=== PATIENT | female | born 1985 | race Two or more races ===

== ENCOUNTER 2024-08-12 04:35 | Inpatient (IN) | payer OTHER ==
[~2024-08-12] VITALS: Ht 170.2 cm; Wt 144.0 kg
[2024-08-12] VITALS (13 sets, daily range): BP systolic 138–165; BP diastolic 78–109; PULSE 97–124; RESP 12–22; TEMP 97.3–98.9; O2SAT 92–100
--- NOTE | 2024-08-12 05:14 | ECG ---
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
[2024-08-12 05:17] LABS: Basophils # (auto) 0.2 10 ^3/uL (0-0.2); Hemoglobin 11.7 g/dL (12.2-16.2); Lymphocytes # (auto) 2.5 10 ^3/uL (0.4-5.4); Neutrophils # (auto) 9.2 10 ^3/uL (1.6-8.6)
[2024-08-12 05:22] LABS: Basophils % (auto) 1.1 % (0.0-2.0); Eosinophils # (auto) 1.5 10 ^3/uL (0-0.8); Eosinophils % (auto) 10.8 % (0.0-7.0); Hematocrit 36.6 % (36.0-46.0); Lymphocytes % (auto) 17.6 % (10.0-50.0); Mean Corpuscular Hemoglobin 24.7 pg (28.0-32.0); Mean Corpuscular Volume 77.2 fL (80.0-100.0); Monocytes # (auto) 0.9 10 ^3/uL (0-1.3); Monocytes % (auto) 6.6 % (0.0-12.0); Neutrophils % (auto) 63.9 % (37.0-80.0); Platelet Count (auto) 484 10^3/uL (140-450); Red Blood Cells 4.74 10^6/uL (4.0-5.20); White Blood Cell 14.3 10^3/uL (4.4-10.8)
[2024-08-12 05:29] LABS: Alanine Aminotransferase 19 U/L (7-40); Albumin 4.8 g/dL (3.2-4.8); Alkaline Phosphatase 61 U/L (46-116); Anion Gap 9 (5-15); Aspartate Aminotransferase 19 U/L (13-40); BUN/Creatinine Ratio 14.1 (10.0-20.0); Bilirubin, Total 0.7 mg/dL (0.2-1.0); Blood Urea Nitrogen 10 mg/dL (9-23); Calcium 9.7 mg/dL (8.7-10.4); Carbon Dioxide 27 mmol/L (20-31); Chloride 105 mmol/L (98-107); Potassium 3.9 mmol/L (3.5-5.1); Sodium 141 mmol/L (136-145)
[2024-08-12 05:39] LABS: Glucose 126 mg/dL (74-106); Total Protein 8.2 g/dL (5.7-8.2)
[2024-08-12 05:43] LABS: COVID19 ANTIGEN SOFIA FIA NEGATIVE (NEGATIVE); Rapid Influenza A Negative (Negative); Rapid Influenza B Negative (Negative)
[2024-08-12] MEDS ORDERED: DexAMETHasone INJECTION 10 MG in D5W 5% 50 ML IV ONE (05:45)
[2024-08-12] MEDS: IPRATROPIUM BROM 0.5 MG/2.5ML INH SOL NEB ONE ×2 (06:05→08:42)
[2024-08-12] MEDS: ALBUTEROL SULF 2.5 MG/0.5ML(0.5%) NEB SOLN NEB ONE ×2 (06:05→08:42)
[2024-08-12] MEDS: DexAMETHasone SOD PHOS 10MG/1ML VIAL INJ IV ONE (06:11)
--- NOTE | 2024-08-12 06:36 | DVH ---
EXAM: XR Chest, 1 View CLINICAL INDICATION: Shortness of breath TECHNIQUE: Frontal view of the chest. COMPARISON: None FINDINGS: LUNGS AND PLEURAL SPACES: Unremarkable. No consolidation. No pneumothorax. HEART: Unremarkable. No cardiomegaly. MEDIASTINUM: Unremarkable. Normal mediastinal contour. BONES/JOINTS: Unremarkable. No acute fracture. OTHER FINDINGS: . IMPRESSION: No acute cardiopulmonary process.
--- NOTE | 2024-08-12 07:14 | ED.PDOC ---
SOB-HPI HPI Comments 38 year old female DYLON presents to the ED with chief complaint of SOB. Patient reports that she has been experiencing SOB that is worse with exertion for the past 2 days. Patient relays that she has history of asthma and she used her inhaler with no relief noted. Patient states upon being transported by the ambulance and being given a breathing treatment, she felt much better upon arrival to the ED. Patient denies any chest pain, cough, fever, chills, headache, dizziness, or hemoptysis. 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 Hx Family History Family History: Reviewed,noncontributory to illness Social History Smoker: Non-Smoker Alcohol: Denies ETOH Use Drugs: Denies Drug Use Lives In: Home Constitutional: denies: chills, diaphoresis, fatigue, fever, malaise, sweats, weakness, others EENTM: denies: blurred vision, double vision, ear bleeding, ear discharge, ear drainage, ear pain, ear ringing, eye pain, eye redness, hearing loss, mouth pain, mouth swelling, nasal discharge, nose bleeding, nose congestion, nose pain, photophobia, tearing, throat pain, throat swelling, voice changes, others Respiratory: reports: shortness of breath, SOB with excertion; denies: cough, hemoptysis, orthopnea, SOB at rest, stridor, wheezing, others Cardiovascular: denies: chest pain, dizzy spells, diaphoresis, Dyspnea on exertion, edema, irregular heart beat, left arm pain, lightheadedness, palpitations, PND, syncope, others Gastrointestinal: denies: abdomen distended, abdominal pain, blood streaked bowels, constipated, diarrhea, dysphagia, difficulty swallowing, hematemesis, melena, nausea, poor appetite, poor fluid intake, rectal bleeding, rectal pain, vomiting, others Genitourinary: denies: abnormal vagina bleeding, burning, dyspareunia, dysuria, flank pain, frequency, hematuria, incontinence, pain, , vagina discharge, urgency, others Neurological: denies: dizziness, fainting, headache, left sided numbness, left sided weakness, numbness, paresthesia, pre-existing deficit, right sided numbness, right sided weakness, seizure, speech problems, tingling, tremors, weakness, others Musculoskeletal: denies: back pain, gout, joint pain, joint swelling, muscle pain, muscle stiffness, neck pain, others Integumetry: denies: bruises, change in color, change in hair/nails, dryness, laceration, lesions, lumps, rash, wounds, others Allergic/Immunocompromised: denies: Difficulty Healing, Frequent Infections, Hives, Itching, others Hematologic/Lymphatic: denies: anemia, blood clots, easy bleeding, easy bruising, swollen glands, others Endocrine: denies: excessive hunger, excessive sweating, excessive thirst, excessive urination, flushing, intolerance to cold, intolerance to heat, unexplained weight gain, unexplained weight loss, others Psychiatric: denies: anxiety, bipolar disorder, depression, hopeless, panic disorder, schizophrenia, sleepless, suicidal, others All Other Systems: Reviewed and Negative Physical Exam General Appearance: No Apparent Distress, Normal HEENT: Normal ENT Inspection, Pharynx Normal, TMs Normal Neck: Full Range of Motion, Non-Tender, Normal, Normal Inspection Respiratory: Chest Non-Tender, Lungs Clear, No Accessory Muscle Use, No Respiratory Distress, Normal Breath Sounds, Other (Tachypneic) Cardiovascular: No Edema, No JVD, No Murmur, No Gallop, Normal Peripheral Pulses, Tachycardia Breast Exam: Deferred Gastrointestinal: No Organomegaly, Non Tender, No Pulsatile Mass, Normal Bowel Sounds, Soft Genitalia: Deferred Pelvic: Deferred Rectal: Deferred Extremities: No calf tenderness, Normal capillary refill, Normal inspection, Normal range of motion, Non-tender, No pedal edema Musculoskeletal : Apperance: Normal 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 Was a procedure done?: No Differential Dx Differential Diagnosis: Asthma, Bronchitis, Pneumonia X-Ray, Labs, Meds, VS Vital Signs Date Time Temp Pulse Resp B/P (MAP) Pulse Ox O2 Delivery O2 Flow Rate FiO2 08/12/24 06:45 102 18 172/104 (126) 93 08/12/24 06:06 16 94 Nasal Cannula* 3 32 08/12/24 05:26 94 Nasal Cannula* 4 36 08/12/24 05:15 104 08/12/24 05:15 104 22 94 Nasal Cannula* 4 36 08/12/24 05:15 98.1 104 22 183/109 (133) 94 98.1 08/12/24 04:42 111 08/12/24 04:40 98.0 123 26 154/119 (131) 96 98.0 Lab Test 08/12/24 06:23 08/12/24 05:10 08/12/24 05:01 Range/Units Troponin I High Sensitivity 7 4 </=34 ng/L Influenza Type A Antigen Negative Negative Influenza Type B Antigen Negative Negative SARS-CoV-2 Antigen (Rapid) Negative NEGATIVE White Blood Count 14.3 H 4.4-10.8 10^3/uL Red Blood Count 4.74 4.0-5.20 10^6/uL Hemoglobin 11.7 L 12.2-16.2 g/dL Hematocrit 36.6 36.0-46.0 % Mean Corpuscular Volume 77.2 L 80.0-100.0 fL Mean Corpuscular Hemoglobin 24.7 L 28.0-32.0 pg Mean Corpuscular Hemoglobin Concent 32.0 32.0-36.0 g/dL Red Cell Distribution Width 17.0 H 11.8-14.3 % Platelet Count 484 H 140-450 10^3/uL Mean Platelet Volume 7.5 6.9-10.8 fL Neutrophils (%) (Auto) 63.9 37.0-80.0 % Lymphocytes (%) (Auto) 17.6 10.0-50.0 % Monocytes (%) (Auto) 6.6 0.0-12.0 % Eosinophils (%) (Auto) 10.8 H 0.0-7.0 % Basophils (%) (Auto) 1.1 0.0-2.0 % Neutrophils # (Auto) 9.2 H 1.6-8.6 10 ^3/uL Lymphocytes # (Auto) 2.5 0.4-5.4 10 ^3/uL Monocytes # (Auto) 0.9 0-1.3 10 ^3/uL Eosinophils # (Auto) 1.5 H 0-0.8 10 ^3/uL Basophils # (Auto) 0.2 0-0.2 10 ^3/uL Nucleated Red Blood Cells 0.0 % Sodium Level 141 136-145 mmol/L Potassium Level 3.9 3.5-5.1 mmol/L Chloride Level 105 98-107 mmol/L Carbon Dioxide Level 27 20-31 mmol/L Anion Gap 9 5-15 Blood Urea Nitrogen 10 9-23 mg/dL Creatinine 0.71 0.550-1.02 mg/dL Glomerular Filtration Rate Calc 112 >90 mL/min BUN/Creatinine Ratio 14.1 10.0-20.0 Serum Glucose 126 H 74-106 mg/dL Lactic Acid Level 1.4 0.4-2.0 mmol/L Calcium Level 9.7 8.7-10.4 mg/dL Total Bilirubin 0.7 0.2-1.0 mg/dL Aspartate Amino Transferase (AST) 19 13-40 U/L Alanine Aminotransferase (ALT) 19 7-40 U/L Alkaline Phosphatase 61 46-116 U/L B-Type Natriuretic Peptide 16.03 0-100 pg/mL Total Protein 8.2 5.7-8.2 g/dL Albumin 4.8 3.2-4.8 g/dL Current Medications Medications (Trade) Dose Ordered Sig/Yael Route Start Time Stop Time Status Last Admin Albuterol (Ventolin Medneb) 5 mg ONCE ONCE NEB 08/12/24 05:45 08/12/24 05:46 DC 08/12/24 06:05 Ipratropium [place] (Atrovent Medneb) 0.5 mg ONCE ONCE NEB 08/12/24 05:45 08/12/24 05:46 DC 08/12/24 06:05 Dexamethasone Sodium Phosphate (Decadron Injection) 10 mg ONCE ONCE IV 08/12/24 06:03 08/12/24 06:04 DC 08/12/24 06:11 Time of 1ST Reevaluation: 08:10 Reevaluation 1ST: Unchanged Patient Education/Counseling: Diagnosis, Treatment Family Education/Counseling: No Family Present Additional Information The following tests were ordered, and results were reviewed by me: Chest XR, CBC, CMP, Troponin, UA, Influenza, COVID, Preg urine, Lactic, BNP, EKG Additional Information was gathered from interviewing the following independent historians: EMS I reviewed and agreed with the following test results read by other providers: Chest XR I discussed treatment and results with medical personnel and: patient Comprehensive systems review obtained and negative except for what is stated in the HPI. Departure 1 Departure Time of Disposition: 07:42 (Patient likely with asthma exacerbation. Patient now has clear lungs is feeling well and we will discharge patient with outpatient follow up) Impression: Primary Impression: Acute asthma exacerbation Qualified Codes: J45.21 - Mild intermittent asthma with (acute) exacerbation Disposition: HOME / SELF CARE / HOMELESS Condition: Stable Additional Instructions: You likely had an asthma exacerbation. You should use your inhaler as directed. Your prescribed steroids. Please take as directed. It is important to follow up with the regular doctor within 1 week. If your symptoms worsen or you have any other concerns please return to the emergency room. e-Prescriptions Prednisone (Prednisone) 20 Mg Tab 40 MG PO DAILY for 5 Days, #10 MG Prov: OSMAN ZUÑIGA MD 08/12/24 Discharged With: Self Critical Care Note Critical Care Time?: No Stability Stability form required: No Heart Score Heart Score: Heart Score Response (Comments) Value History N/A 0 EKG N/A 0 Age N/A 0 Risk Factors N/A 0 Troponin N/A 0 Total 0 I personally scribed for OSMAN UZÑIGA MD ([email or web address]) on 08/12/24 at 07:14. Electronically submitted by Brian Higgins ([email or web address]). OSMAN ZUÑIGA MD August 12, 2024 07:14
[2024-08-12] MEDS ORDERED: PRED20TA2 PO (07:43)
--- NOTE | 2024-08-12 08:27 | ED.PDOC ---
Departure 1 Departure Time of Disposition: 08:26 (I attempted to discharge patient however patient was desatting to 86% on room air. We will order patient more nebs and admit patient for further workup and expert consultation.) Impression: Primary Impression: Acute asthma exacerbation Qualified Codes: J45.21 - Mild intermittent asthma with (acute) exacerbation Disposition: ADMITTED INPATIENT Admit to: Med Surg Condition: Serious Additional Instructions: You likely had an asthma exacerbation. You should use your inhaler as directed. Your prescribed steroids. Please take as directed. It is important to follow up with the regular doctor within 1 week. If your symptoms worsen or you have any other concerns please return to the emergency room. e-Prescriptions Prednisone (Prednisone) 20 Mg Tab 40 MG PO DAILY for 5 Days, #10 MG Prov: OSMAN ZUÑIGA MD 08/12/24 Discharged With: Self Critical Care Note Critical Care Time?: Yes Critical care comment: Acute shortness of breath Authorized and Performed by: Osman Zuñiga MD Total critical care time: Approximately 35 minutes Due to a high probability of clinically significant, life threatening deterioration, the patient required my highest level of preparedness to intervene emergently and I personally spent this critical care time directly and personally managing the patient. This critical care time included obtaining a history; examining the patient; pulse oximetry; ordering and review of studies; arranging urgent treatment with development of a management plan; evaluation of patient's response to treatment; frequent reassessment; and, discussions with other providers. This critical care time was performed to assess and manage the high probability of imminent, life-threatening deterioration that could result in multi-organ failure. It was exclusive of separately billable procedures and treating other patients and teaching time. Please see my other sections and the rest of the note for further information on patient assessment and treatment. OSMAN ZUÑIGA MD August 12, 2024 08:27
[2024-08-12] MEDS: MAGNESIUM SULFATE 1GM/100ML 100 ML IV SCH (09:30)
[2024-08-12] MEDS ORDERED: DOCUSATE SOD 100 MG CAP PO PRN (10:00)
[2024-08-12] MEDS ORDERED: ACETAMINOPHEN 325 MG TAB PO PRN (10:00)
[2024-08-12] MEDS ORDERED: ONDANSETRON HCL 4 MG/2 ML VIAL IV PRN (10:00)
[2024-08-12] MEDS: methylPREDNISolone SOD SUCC 40 MG/ML VL IV SCH (10:50)
--- NOTE | 2024-08-12 10:52 | DVHHP2 ---
History of Present Illness Reason for Visit: Shortness of breath History of Present Illness Marly Stephen is a 38-year-old female with past medical history of asthma, who was brought in by EMS for shortness of breath. Patient states that she has had a dry cough for about 3 days. She attributed it to allergies. Yesterday she began experiencing shortness of breath with activity. Early this morning her daughter had a nightmare that startled her awake. She went to her, was having shortness of breath, tried using her rescue inhaler without any improvement and called EMS. She received a breathing treatment from EMS that did help, but she was still wheezing and requiring oxygen. ER gave her a breathing treatments as well. Her shortness of breath improved, but she was desaturating on RA 86-88%. Patient was placed back on oxygen and given another breathing treatment. On assessment she is on 3L NC, saturating 94%, able to speak in full sentences, denies any shortness of breath at this time, is still experiencing inspiratory wheezing. Pulmonary: Asthma Past Surgical History: (x 1) Smoke: No ALCOHOL: none Drugs: None Lives: with Family Domestic Violence: Neg Review of Systems Constitutional: No: Fever, Chills, Sweats, Weakness, Malaise, Other Eyes: No: Pain, Vision change, Conjunctivae inflammation, Eyelid inflammation, Other, Redness ENT: No: Ear pain, Ear discharge, Nose pain, Nose discharge, Nose congestion, Mouth pain, Mouth swelling, Throat pain, Throat swelling, Other Respiratory: Cough, Dry, Shortness of breath, SOB with excertion, Wheezing, Wheezing; No: Hemoptysis, Pleuritic Pain, Sputum, Other Cardiovascular: No: Chest Pain, Palpitations, Orthopnea, Paroxysmal Noc. Dyspnea, Edema, Lt Headedness, Other Gastrointestinal: No: Nausea, Vomiting, Abdominal Pain, Diarrhea, Constipation, Melena, Hematochezia, Other Genitourinary: No Dysuria, No Frequency, No Incontinence, No Hematuria, No Retention, No Other Musculoskeletal: No: other, neck pain, shoulder pain, arm pain, back pain, hand pain, leg pain, foot pain Skin: No: Rash, Lesions, Jaundice, Bruising, Other Neurological: No: Weakness, Numbness, Incoordination, Change in speech, Confusion, Seizures, Other Allergies: Coded Allergies: NO KNOWN ALLERGIES (Unverified , 08/12/24) Medications Current Medications Medications Dose Ordered Sig/Yael Route Start Time Stop Time Status Last Admin Dose Admin Magnesium Sulfate/ Dextrose 100 ml @ 100 mls/hr Q1H IV 08/12/24 08:30 08/12/24 10:29 08/12/24 09:30 100 MLS/HR Exam Vital Signs Vital Signs Date Time Temp Pulse Resp B/P (MAP) Pulse Ox O2 Delivery O2 Flow Rate FiO2 08/12/24 09:00 16 94 Nasal Cannula* 3 32 08/12/24 08:00 96 08/12/24 08:00 98.9 161/110 (127) 98.9 General Appearance: Alert, Oriented X3, Cooperative, moderate distress HEENT: Atraumatic, PERRLA Respiratory: Other (Inspiratory wheezing) Cardiovascular: Normal S1, Normal S2, Other (SR-ST) Abdominal: Normal bowel sounds, Soft, No tenderness, No hepatospenomegaly Extremities: No clubbing, No cyanosis, No edema, Normal pulses, No tenderness/swelling Skin: No rashes, No breakdown, No significant lesion Neuro: Normal gait, Normal speech, Strength at 5/5 X4 ext, Normal tone, Sensation intact Psych/Mental Status: Mental status NL, Mood NL Labs/Xrays Labs Test 08/12/24 08:10 08/12/24 05:10 08/12/24 05:01 Range/Units Troponin I High Sensitivity 6 </=34 ng/L Influenza Type A Antigen Negative Negative Influenza Type B Antigen Negative Negative SARS-CoV-2 Antigen (Rapid) Negative NEGATIVE White Blood Count 14.3 H 4.4-10.8 10^3/uL Red Blood Count 4.74 4.0-5.20 10^6/uL Hemoglobin 11.7 L 12.2-16.2 g/dL Hematocrit 36.6 36.0-46.0 % Mean Corpuscular Volume 77.2 L 80.0-100.0 fL Mean Corpuscular Hemoglobin 24.7 L 28.0-32.0 pg Mean Corpuscular Hemoglobin Concent 32.0 32.0-36.0 g/dL Red Cell Distribution Width 17.0 H 11.8-14.3 % Platelet Count 484 H 140-450 10^3/uL Mean Platelet Volume 7.5 6.9-10.8 fL Neutrophils (%) (Auto) 63.9 37.0-80.0 % Lymphocytes (%) (Auto) 17.6 10.0-50.0 % Monocytes (%) (Auto) 6.6 0.0-12.0 % Eosinophils (%) (Auto) 10.8 H 0.0-7.0 % Basophils (%) (Auto) 1.1 0.0-2.0 % Neutrophils # (Auto) 9.2 H 1.6-8.6 10 ^3/uL Lymphocytes # (Auto) 2.5 0.4-5.4 10 ^3/uL Monocytes # (Auto) 0.9 0-1.3 10 ^3/uL Eosinophils # (Auto) 1.5 H 0-0.8 10 ^3/uL Basophils # (Auto) 0.2 0-0.2 10 ^3/uL Nucleated Red Blood Cells 0.0 % Sodium Level 141 136-145 mmol/L Potassium Level 3.9 3.5-5.1 mmol/L Chloride Level 105 98-107 mmol/L Carbon Dioxide Level 27 20-31 mmol/L Anion Gap 9 5-15 Blood Urea Nitrogen 10 9-23 mg/dL Creatinine 0.71 0.550-1.02 mg/dL Glomerular Filtration Rate Calc 112 >90 mL/min BUN/Creatinine Ratio 14.1 10.0-20.0 Serum Glucose 126 H 74-106 mg/dL Lactic Acid Level 1.4 0.4-2.0 mmol/L Calcium Level 9.7 8.7-10.4 mg/dL Total Bilirubin 0.7 0.2-1.0 mg/dL Aspartate Amino Transferase (AST) 19 13-40 U/L Alanine Aminotransferase (ALT) 19 7-40 U/L Alkaline Phosphatase 61 46-116 U/L B-Type Natriuretic Peptide 16.03 0-100 pg/mL Total Protein 8.2 5.7-8.2 g/dL Albumin 4.8 3.2-4.8 g/dL EXAM: XR Chest, 1 View FINDINGS: LUNGS AND PLEURAL SPACES: Unremarkable. No consolidation. No pneumothorax. HEART: Unremarkable. No cardiomegaly. MEDIASTINUM: Unremarkable. Normal mediastinal contour. BONES/JOINTS: Unremarkable. No acute fracture. OTHER FINDINGS: . IMPRESSION: No acute cardiopulmonary process. Assessment/Plan Assessment/Plan Assessment: Acute asthma exacerbation, Hypoxemia, Leukocytosis, Obesity, Plan: Admit to Med-Surg, Breathing treatments Q 4 hours while awake, IV steroids, Supplemental oxygen as needed, wean off as tolerated, Plan discussed with: Patient My Orders Orders - CANDELARIO ARGUETA Procedure Category Date Status Time Admit ADMIT 08/12/24 Verified 09:56 Code Status CODE 08/12/24 Verified 09:56 Hydrocodone-Acet PHA 08/12/24 Verified 5/325mg Tab ([place] 10:00 Ondansetron Hcl PHA 08/12/24 Verified (Zofran) 10:00 Docusate Sodium PHA 08/12/24 Verified Capsule (Colace 10:00 Complete Blood Count LAB 08/13/24 Verified 04:00 Comprehensive LAB 08/13/24 Verified Metabolic Panel 04:00 Condition: Serious CR 08/12/24 Verified 09:56 Acetaminophen Tablet PHA 08/12/24 Verified (Tylenol Tablet) 10:00 Oxygen By Nasal RT 08/12/24 Verified Cannula 09:56 Ipratropium Medneb PHA 08/12/24 Verified (Atrovent Medneb) 10:00 Albuterol Medneb PHA 08/12/24 Verified (Ventolin Medneb) 10:00 Methylprednisolone PHA 08/12/24 Verified Sod Succ (Solu Medrol 10:00 Date of Service: August 12, 2024 Billing Provider: CANDELARIO ARGUETA Common Visit Codes: [id number] INP/OBS CARE (MOD) CANDELARIO ARGUETA August 12, 2024 10:52
[2024-08-12] MEDS: ALBUTEROL SULF 2.5 MG/0.5ML(0.5%) NEB SOLN NEB SCH ×2 (11:15→22:59)
[2024-08-12] MEDS: IPRATROPIUM BROM 0.5 MG/2.5ML INH SOL NEB SCH ×2 (11:15→22:59)
[2024-08-12] MEDS: hydrALAZINE HCL 10 MG TAB PO ONE (11:30)
[2024-08-12 12:33] LABS: Urine Bacteria None Seen /hpf (None Seen)
[2024-08-12 12:45] LABS: Urine Blood Negative /uL (Negative); Urine Clarity Clear (Clear); Urine Color Light-Yellow (Yellow); Urine Mucus FEW (None Seen); Urine Protein, UAD Negative (Negative); Urine Specific Gravity 1.013 (1.001-1.035); Urine Squamous Epithelial Cell FEW /hpf (<5); Urine Urobilinogen Normal (Negative); Urine WBC < 1 /HPF (0-5); Urine pH 5.5 (5.0-9.0)
[2024-08-12] MEDS: hydrALAZINE HCL 20 MG/ML VL IV PRN (14:06)
[2024-08-12] MEDS: HYDROcodone-ACET 5/325MG TAB PO PRN (14:06)
[2024-08-12] MEDS ORDERED: IPRATROPIUM BROM 0.5 MG/2.5ML INH SOL NEB SCH (22:00)
[2024-08-13] VITALS (22 sets, daily range): BP systolic 126–172; BP diastolic 63–104; PULSE 94–127; RESP 16–20; TEMP 97.6–98.9; O2SAT 90–100
[2024-08-13 06:49] LABS: Basophils # (auto) 0.1 10 ^3/uL (0-0.2); Basophils % (auto) 0.3 % (0.0-2.0); Eosinophils # (auto) 0 10 ^3/uL (0-0.8); Eosinophils % (auto) 0.1 % (0.0-7.0); Hematocrit 37.8 % (36.0-46.0); Lymphocytes # (auto) 1.8 10 ^3/uL (0.4-5.4); Lymphocytes % (auto) 9.3 % (10.0-50.0); Mean Corpuscular Hemoglobin 24.3 pg (28.0-32.0); Mean Corpuscular Hgb Conc. 31.8 g/dL (32.0-36.0); Mean Corpuscular Volume 76.6 fL (80.0-100.0); Monocytes % (auto) 4.9 % (0.0-12.0); Neutrophils # (auto) 16.9 10 ^3/uL (1.6-8.6); Neutrophils % (auto) 85.4 % (37.0-80.0); Platelet Count (auto) 532 10^3/uL (140-450); Red Blood Cells 4.93 10^6/uL (4.0-5.20); White Blood Cell 19.7 10^3/uL (4.4-10.8)
[2024-08-13 07:01] LABS: Alanine Aminotransferase 19 U/L (7-40); Albumin 4.7 g/dL (3.2-4.8); Alkaline Phosphatase 62 U/L (46-116); Anion Gap 10 (5-15); Aspartate Aminotransferase 19 U/L (13-40); BUN/Creatinine Ratio 22.1 (10.0-20.0); Blood Urea Nitrogen 15 mg/dL (9-23); Calcium 9.4 mg/dL (8.7-10.4); Carbon Dioxide 25 mmol/L (20-31); Chloride 104 mmol/L (98-107); Glucose 105 mg/dL (74-106); Potassium 4.6 mmol/L (3.5-5.1); Sodium 139 mmol/L (136-145); Total Protein 8.2 g/dL (5.7-8.2)
[2024-08-13 07:02] LABS: Bilirubin, Total 0.6 mg/dL (0.2-1.0)
--- NOTE | 2024-08-13 10:49 | DVHPN2 ---
Subjective The patient is seen and examined at bedside. Still wheezing Reviewed: Care Plan, H&P, Labs, Medications, Previous Orders, Radiology Changes from previous H/P or p: No Changes Eyes: No Pain, No Vision change, No Conjunctivae inflammation, No Eyelid inflammation, No Other, No Redness ENT: No Ear pain, No Ear discharge, No Nose pain, No Nose discharge, No Nose congestion, No Mouth pain, No Mouth swelling, No Throat pain, No Throat swelling, No Other Cardiovascular: No Chest Pain, No Palpitations, No Orthopnea, No Paroxysmal Noc. Dyspnea, No Edema, No Lt Headedness, No Other Respiratory: Cough, Dry, Shortness of breath, SOB with excertion, Wheezing; No Hemoptysis, No Pleuritic Pain, No Sputum, No Other Gastrointestinal: No Nausea, No Vomiting, No Abdominal Pain, No Diarrhea, No Constipation, No Melena, No Hematochezia, No Other Genitourinary: No Dysuria, No Frequency, No Incontinence, No Hematuria, No Retention, No Other Musculoskeletal: No other, No neck pain, No shoulder pain, No arm pain, No back pain, No hand pain, No leg pain, No foot pain Skin: No Rash, No Lesions, No Jaundice, No Bruising, No Other Objective Vitals Vital Signs Date Time Temp Pulse Resp B/P (MAP) Pulse Ox O2 Delivery O2 Flow Rate FiO2 08/13/24 10:00 94 Nasal Cannula* 3 32 08/13/24 09:00 98.4 104 18 143/86 (105) 98.4 Intake/Output Intake and Output 08/13/24 07:00 Intake Total 1060 ml Balance 1060 ml Intake Oral 860 ml IV Total 200 ml General Appearance: Alert, Oriented X3, Cooperative, No acute distress HEENT: Atraumatic, PERRLA, EOMI, Mucous membr. moist/pink Neck: Supple Lungs: Other (Decreased breath sound bilateral. Positive for wheezing) Cardiovascular: Regular rate, Normal S1, Normal S2, No murmurs, Gallops, Rubs Abdomen: Normal bowel sounds, Soft, No tenderness Neuro: Cranial nerves 3-12 NL Psych/Mental Status: Mental status NL Medications Current Medications Medications Dose Ordered Sig/Yael Route Start Time Stop Time Status Last Admin Dose Admin Acetaminophen/ Hydrocodone Bitart 1 tab Q4HP PRN PO 08/12/24 10:00 08/12/24 21:46 1 TAB Ondansetron HCl 4 mg Q4HP PRN IV 08/12/24 10:00 Docusate Sodium 100 mg BIDPRN PRN PO 08/12/24 10:00 Acetaminophen 650 mg Q6HP PRN PO 08/12/24 10:00 Methylprednisolone Sodium Succinate 40 mg BID IV 08/12/24 10:00 08/13/24 10:31 40 MG Hydralazine HCl 10 mg Q6HP PRN IV 08/12/24 12:45 08/12/24 14:06 10 MG Albuterol 2.5 mg Q4HR NEB 08/12/24 22:00 08/13/24 10:40 2.5 MG Ipratropium [place] 0.5 mg Q4HR [facility] 08/12/24 22:00 08/13/24 10:41 0.5 MG Laboratory Results Laboratory Tests 08/13/24 06:03 Chemistry Test 08/13/24 06:03 Albumin 4.7 g/dL (3.2-4.8) Calcium Level 9.4 mg/dL (8.7-10.4) Total Protein 8.2 g/dL (5.7-8.2) LFT Test 08/13/24 06:03 Alanine Aminotransferase (ALT) 19 U/L (7-40) Alkaline Phosphatase 62 U/L (46-116) Aspartate Amino Transferase (AST) 19 U/L (13-40) Total Bilirubin 0.6 mg/dL (0.2-1.0) Urinalysis Test 08/12/24 12:32 Urine Color Light-yellow (Yellow) Urine Clarity Clear (Clear) Urine pH 5.5 (5.0-9.0) Urine Specific [place] 1.013 (1.001-1.035) Urine Protein Negative (Negative) Urine Ketones Negative (Negative) Urine Blood Negative /uL (Negative) Urine Nitrite Negative (Negative) Urine Bilirubin Negative (Negative) Urine Urobilinogen Normal mg/dL (Negative) Urine Leukocyte Esterase Negative /uL (Negative) Urine RBC 1 /hpf (0 - 4) Urine Microscopic WBC < 1 /HPF (0-5) Urine Squamous Epithelial Cells Few /hpf (<5) Urine Bacteria None seen /hpf (None Seen) Urine Mucus Few (None Seen) Urine Glucose Normal mg/dL (Normal) Urine Test Negative (Negative) Labs and/or images reviewed: Labs reviewed by me Assessment/Plan Assessment/Plan Acute asthma exacerbation, Hypoxemia, Leukocytosis, Obesity, Continuing current management. I will add IV antibiotic Rocephin and Zithromax. Continuing with nebulizer Continuing with Solu-Medrol. This medical document was created using an electronic medical record system with [employer] computerized dictation system. Although this document has been carefully reviewed, there may still be some phonetic and typographical errors. These areas are purely typographical due to imperfections of the software programs, and do not reflect any compromise in the patient's medical care. Plan discussed with: Patient Date of Service: August 13, 2024 Billing Provider: ABIODUN BAIRES MD Common Visit Codes: [id number] INP/OBS CARE(HIGH) ABIODUN BAIRES MD August 13, 2024 10:49
[2024-08-14] VITALS (18 sets, daily range): BP systolic 135–165; BP diastolic 83–108; PULSE 83–121; RESP 16–22; TEMP 97.8–98.4; O2SAT 90–99
[2024-08-14] MEDS ORDERED: ALBU2TAB11 IN (17:53)
[2024-08-14] MEDS ORDERED: FLUT1AER17 IN (18:02)
[2024-08-14] MEDS ORDERED: APIX5TAB PO (18:02)
[2024-08-14] MEDS ORDERED: PRE5T PO (18:02)
[2024-08-14] MEDS ORDERED: FURO20TA3 PO (18:02)
[2024-08-14] MEDS ORDERED: PANT1INJ3 PO (18:02)
[2024-08-14] MEDS ORDERED: ATOR20TA50 PO (18:02)
[2024-08-14] MEDS ORDERED: NITR1SPR TL (18:02)
[2024-08-14] MEDS ORDERED: HYDR25TA88 PO (18:02)
[2024-08-14] MEDS ORDERED: LISI20TA56 PO (18:02)
[2024-08-14] MEDS ORDERED: METO-158 PO (18:02)
[2024-08-14] MEDS ORDERED: AMLO1TAB22 PO (18:02)
[2024-08-14] MEDS: MORPHINE SULFATE INJ 2 MG/ml SYRG IV ONE (20:30)
[2024-08-15] VITALS (23 sets, daily range): BP systolic 142–159; BP diastolic 76–102; PULSE 95–128; RESP 16–20; TEMP 97.9–98.4; O2SAT 92–98
--- NOTE | 2024-08-15 13:52 | DVHPN2 ---
Subjective The patient is seen and examined at bedside. Still wheezing Reviewed: Care Plan, H&P, Labs, Medications, Previous Orders, Radiology Changes from previous H/P or p: No Changes Eyes: No Pain, No Vision change, No Conjunctivae inflammation, No Eyelid inflammation, No Other, No Redness ENT: No Ear pain, No Ear discharge, No Nose pain, No Nose discharge, No Nose congestion, No Mouth pain, No Mouth swelling, No Throat pain, No Throat swelling, No Other Cardiovascular: No Chest Pain, No Palpitations, No Orthopnea, No Paroxysmal Noc. Dyspnea, No Edema, No Lt Headedness, No Other Respiratory: Cough, Dry, Shortness of breath, SOB with excertion, Wheezing; No Hemoptysis, No Pleuritic Pain, No Sputum, No Other Gastrointestinal: No Nausea, No Vomiting, No Abdominal Pain, No Diarrhea, No Constipation, No Melena, No Hematochezia, No Other Genitourinary: No Dysuria, No Frequency, No Incontinence, No Hematuria, No Retention, No Other Musculoskeletal: No other, No neck pain, No shoulder pain, No arm pain, No back pain, No hand pain, No leg pain, No foot pain Skin: No Rash, No Lesions, No Jaundice, No Bruising, No Other Objective Vitals Vital Signs Date Time Temp Pulse Resp B/P (MAP) Pulse Ox O2 Delivery O2 Flow Rate FiO2 08/15/24 11:28 101 18 152/102 96 1.5 30 08/15/24 10:14 Nasal Cannula 08/15/24 09:00 97.9 97.9 Intake/Output Intake and Output 08/15/24 07:00 Intake Total 2465 ml Balance 2465 ml Intake Oral 2465 ml # Voids 5 General Appearance: Alert, Oriented X3, Cooperative, No acute distress HEENT: Atraumatic, PERRLA, EOMI, Mucous membr. moist/pink Neck: Supple Lungs: Other (Decreased breath sound bilateral. Positive for wheezing) Cardiovascular: Regular rate, Normal S1, Normal S2, No murmurs, Gallops, Rubs Abdomen: Normal bowel sounds, Soft, No tenderness Neuro: Cranial nerves 3-12 NL Psych/Mental Status: Mental status NL Medications Current Medications Medications Dose Ordered Sig/Yael Route Start Time Stop Time Status Last Admin Dose Admin Acetaminophen/ Hydrocodone Bitart 1 tab Q4HP PRN PO 08/12/24 10:00 5/8/25 13:42 1 TAB Ondansetron HCl 4 mg Q4HP PRN IV 08/12/24 10:00 Docusate Sodium 100 mg BIDPRN PRN PO 08/12/24 10:00 Acetaminophen 650 mg Q6HP PRN PO 08/12/24 10:00 Methylprednisolone Sodium Succinate 40 mg BID IV 08/12/24 10:00 08/15/24 09:51 40 MG Hydralazine HCl 10 mg Q6HP PRN IV 08/12/24 12:45 08/15/24 02:01 10 MG Albuterol 2.5 mg Q4HR NEB 08/12/24 22:00 08/15/24 10:20 2.5 MG Ipratropium [place] 0.5 mg Q4HR NEB 08/12/24 22:00 08/15/24 10:20 0.5 MG Laboratory Results Laboratory Tests 08/13/24 06:03 Urinalysis Test 08/12/24 12:32 Urine Color Light-yellow (Yellow) Urine Clarity Clear (Clear) Urine pH 5.5 (5.0-9.0) Urine Specific [place] 1.013 (1.001-1.035) Urine Protein Negative (Negative) Urine Ketones Negative (Negative) Urine Blood Negative /uL (Negative) Urine Nitrite Negative (Negative) Urine Bilirubin Negative (Negative) Urine Urobilinogen Normal mg/dL (Negative) Urine Leukocyte Esterase Negative /uL (Negative) Urine RBC 1 /hpf (0 - 4) Urine Microscopic WBC < 1 /HPF (0-5) Urine Squamous Epithelial Cells Few /hpf (<5) Urine Bacteria None seen /hpf (None Seen) Urine Mucus Few (None Seen) Urine Glucose Normal mg/dL (Normal) Urine Test Negative (Negative) Assessment/Plan Assessment/Plan Acute asthma exacerbation, Hypoxemia, Leukocytosis, Obesity, Continuing current management. I will add IV antibiotic Rocephin and Zithromax. Continuing with nebulizer Continuing with Solu-Medrol. This medical document was created using an electronic medical record system with [employer] direct computerized dictation system. Although this document has been carefully reviewed, there may still be some phonetic and typographical errors. These areas are purely typographical due to imperfections of the software programs, and do not reflect any compromise in the patient's medical care. Plan discussed with: Patient Date of Service: August 14, 2024 Billing Provider: ABIODUN BAIRES MD Common Visit Codes: [id number] INP/OBS CARE(HIGH) ABIODUN BAIRES MD August 15, 2024 13:52
[2024-08-15] MEDS: cefTRIAXone 1GM/50ML D5W 50 ML IV SCH (14:22)
[2024-08-15] MEDS: AZITHROMYCIN 500MG/ 250ML 250 ML IV SCH (16:55)
[2024-08-16] VITALS (15 sets, daily range): BP systolic 129–151; BP diastolic 76–96; PULSE 76–125; RESP 12–18; TEMP 36.6; O2SAT 90–100
[2024-08-16 07:06] LABS: Basophils # (auto) 0.1 10 ^3/uL (0-0.2); Basophils % (auto) 0.5 % (0.0-2.0); Eosinophils # (auto) 0 10 ^3/uL (0-0.8); Hemoglobin 11.4 g/dL (12.2-16.2); Lymphocytes # (auto) 2.7 10 ^3/uL (0.4-5.4); Lymphocytes % (auto) 15.8 % (10.0-50.0); Mean Corpuscular Hemoglobin 24.3 pg (28.0-32.0); Mean Corpuscular Hgb Conc. 31.8 g/dL (32.0-36.0); Mean Corpuscular Volume 76.6 fL (80.0-100.0); Monocytes % (auto) 5.5 % (0.0-12.0); Neutrophils # (auto) 13.5 10 ^3/uL (1.6-8.6); Neutrophils % (auto) 78.2 % (37.0-80.0); Platelet Count (auto) 457 10^3/uL (140-450); Red Blood Cells 4.71 10^6/uL (4.0-5.20); Red Cell Distribution Width 16.6 % (11.8-14.3); White Blood Cell 17.3 10^3/uL (4.4-10.8)
[2024-08-16 07:17] LABS: Chloride 104 mmol/L (98-107); Sodium 140 mmol/L (136-145)
[2024-08-16 07:18] LABS: Anion Gap 7 (5-15); Calcium 9.8 mg/dL (8.7-10.4); Carbon Dioxide 29 mmol/L (20-31)
[2024-08-16 07:23] LABS: BUN/Creatinine Ratio 16.2 (10.0-20.0); Blood Urea Nitrogen 11 mg/dL (9-23)
[2024-08-16 07:26] LABS: Glucose 107 mg/dL (74-106)
--- NOTE | 2024-08-16 12:50 | DVHPN2 ---
Subjective The patient is seen and examined at bedside. Still wheezing Reviewed: Care Plan, H&P, Labs, Medications, Previous Orders, Radiology Changes from previous H/P or p: No Changes Eyes: No Pain, No Vision change, No Conjunctivae inflammation, No Eyelid inflammation, No Other, No Redness ENT: No Ear pain, No Ear discharge, No Nose pain, No Nose discharge, No Nose congestion, No Mouth pain, No Mouth swelling, No Throat pain, No Throat swelling, No Other Cardiovascular: No Chest Pain, No Palpitations, No Orthopnea, No Paroxysmal Noc. Dyspnea, No Edema, No Lt Headedness, No Other Respiratory: Cough, Dry, Shortness of breath, SOB with excertion, Wheezing; No Hemoptysis, No Pleuritic Pain, No Sputum, No Other Gastrointestinal: No Nausea, No Vomiting, No Abdominal Pain, No Diarrhea, No Constipation, No Melena, No Hematochezia, No Other Genitourinary: No Dysuria, No Frequency, No Incontinence, No Hematuria, No Retention, No Other Musculoskeletal: No other, No neck pain, No shoulder pain, No arm pain, No back pain, No hand pain, No leg pain, No foot pain Skin: No Rash, No Lesions, No Jaundice, No Bruising, No Other Objective Vitals Vital Signs Date Time Temp Pulse Resp B/P (MAP) Pulse Ox O2 Delivery O2 Flow Rate FiO2 08/14/24 10:38 110 12 93 08/14/24 10:38 Nasal Cannula* 2 28 08/14/24 09:00 97.9 129/88 (102) 97.9 Intake/Output Intake and Output 08/16/24 07:00 Intake Total 3050 ml Output Total 1000 ml Balance 2050 ml Intake Oral 2800 ml IV Total 250 ml Output Urine Total 1000 ml # Voids 3 # Bowel Movements 1 General Appearance: Alert, Oriented X3, Cooperative, No acute distress HEENT: Atraumatic, PERRLA, EOMI, Mucous membr. moist/pink Neck: Supple Lungs: Other (Decreased breath sound bilateral. Positive for wheezing) Cardiovascular: Regular rate, Normal S1, Normal S2, No murmurs, Gallops, Rubs Abdomen: Normal bowel sounds, Soft, No tenderness Neuro: Cranial nerves 3-12 NL Psych/Mental Status: Mental status NL Medications Current Medications Medications Dose Ordered Sig/Yael Route Start Time Stop Time Status Last Admin Dose Admin Acetaminophen/ Hydrocodone Bitart 1 tab Q4HP PRN PO 08/12/24 10:00 08/13/24 13:42 1 TAB Ondansetron HCl 4 mg Q4HP PRN IV 08/12/24 10:00 Docusate Sodium 100 mg BIDPRN PRN PO 08/12/24 10:00 Acetaminophen 650 mg Q6HP PRN PO 08/12/24 10:00 Methylprednisolone Sodium Succinate 40 mg BID IV 08/12/24 10:00 08/16/24 08:32 40 MG Hydralazine HCl 10 mg Q6HP PRN IV 08/12/24 12:45 08/15/24 02:01 10 MG Albuterol 2.5 mg Q4HR NEB 08/12/24 22:00 08/16/24 10:38 2.5 MG Ipratropium [place] 0.5 mg Q4HR NEB 08/12/24 22:00 08/16/24 10:38 0.5 MG Ceftriaxone Sodium 50 ml @ 100 mls/hr DAILY@09 IV 08/15/24 14:00 08/16/24 08:32 100 MLS/HR Azithromycin 250 ml @ 125 mls/hr DAILY IV 08/15/24 14:30 08/15/24 16:55 125 MLS/HR Laboratory Results Laboratory Tests 08/16/24 06:14 Chemistry Test 08/16/24 06:14 Calcium Level 9.8 mg/dL (8.7-10.4) Urinalysis Test 08/12/24 12:32 Urine Color Light-yellow (Yellow) Urine Clarity Clear (Clear) Urine pH 5.5 (5.0-9.0) Urine Specific [place] 1.013 (1.001-1.035) Urine Protein Negative (Negative) Urine Ketones Negative (Negative) Urine Blood Negative /uL (Negative) Urine Nitrite Negative (Negative) Urine Bilirubin Negative (Negative) Urine Urobilinogen Normal mg/dL (Negative) Urine Leukocyte Esterase Negative /uL (Negative) Urine RBC 1 /hpf (0 - 4) Urine Microscopic WBC < 1 /HPF (0-5) Urine Squamous Epithelial Cells Few /hpf (<5) Urine Bacteria None seen /hpf (None Seen) Urine Mucus Few (None Seen) Urine Glucose Normal mg/dL (Normal) Urine Test Negative (Negative) Assessment/Plan Assessment/Plan Acute asthma exacerbation, Hypoxemia, Leukocytosis, Obesity, Continuing current management. I will add IV antibiotic Rocephin and Zithromax. Continuing with nebulizer Continuing with Solu-Medrol. This medical document was created using an electronic medical record system with [employer] direct computerized dictation system. Although this document has been carefully reviewed, there may still be some phonetic and typographical errors. These areas are purely typographical due to imperfections of the software programs, and do not reflect any compromise in the patient's medical care. Plan discussed with: Patient My Orders Orders - ABIODUN BAIRES MD Procedure Category Date Status Time Ceftriaxone 1gm/50ml PHA 08/15/24 In Process D5w (Rocephin) 14:00 Azithromycin 500mg/ PHA 08/15/24 In Process 250ml (Zithromax 50 14:30 Date of Service: August 14, 2024 Billing Provider: ABIODUN BAIRES MD Common Visit Codes: [id number] INP/OBS CARE(HIGH) ABIODUN BAIRES MD August 16, 2024 12:50
--- NOTE | 2024-08-16 12:50 | DVHDS2 ---
Discharge Summary Date of Admission August 12, 2024 at 09:56 Date of Discharge: August 16, 2024 Admitting Diagnosis Acute asthma exacerbation, Hypoxemia, Leukocytosis, Obesity, Labs/Diagnostic Data: Laboratory Results Test 08/16/24 06:14 08/13/24 06:03 08/12/24 12:32 08/12/24 08:10 White Blood Count 17.3 10^3/uL (4.4-10.8) Red Blood Count 4.71 10^6/uL (4.0-5.20) Hemoglobin 11.4 g/dL (12.2-16.2) Hematocrit 36.0 % (36.0-46.0) Mean Corpuscular Volume 76.6 fL (80.0-100.0) Mean Corpuscular Hemoglobin 24.3 pg (28.0-32.0) Mean Corpuscular Hemoglobin Concent 31.8 g/dL (32.0-36.0) Red Cell Distribution Width 16.6 % (11.8-14.3) Platelet Count 457 10^3/uL (140-450) Mean Platelet Volume 7.8 fL (6.9-10.8) Neutrophils (%) (Auto) 78.2 % (37.0-80.0) Lymphocytes (%) (Auto) 15.8 % (10.0-50.0) Monocytes (%) (Auto) 5.5 % (0.0-12.0) Eosinophils (%) (Auto) 0.0 % (0.0-7.0) Basophils (%) (Auto) 0.5 % (0.0-2.0) Neutrophils # (Auto) 13.5 10 ^3/uL (1.6-8.6) Lymphocytes # (Auto) 2.7 10 ^3/uL (0.4-5.4) Monocytes # (Auto) 1.0 10 ^3/uL (0-1.3) Eosinophils # (Auto) 0 10 ^3/uL (0-0.8) Basophils # (Auto) 0.1 10 ^3/uL (0-0.2) Nucleated Red Blood Cells 0.0 % Sodium Level 140 mmol/L (136-145) Potassium Level 4.0 mmol/L (3.5-5.1) Chloride Level 104 mmol/L (98-107) Carbon Dioxide Level 29 mmol/L (20-31) Anion Gap 7 (5-15) Blood Urea Nitrogen 11 mg/dL (9-23) Creatinine 0.68 mg/dL (0.550-1.02) Glomerular Filtration Rate Calc 115 mL/min (>90) BUN/Creatinine Ratio 16.2 (10.0-20.0) Serum Glucose 107 mg/dL (74-106) Calcium Level 9.8 mg/dL (8.7-10.4) Total Bilirubin 0.6 mg/dL (0.2-1.0) Aspartate Amino Transferase (AST) 19 U/L (13-40) Alanine Aminotransferase (ALT) 19 U/L (7-40) Alkaline Phosphatase 62 U/L (46-116) Total Protein 8.2 g/dL (5.7-8.2) Albumin 4.7 g/dL (3.2-4.8) Urine Color Light-yellow (Yellow) Urine Clarity Clear (Clear) Urine pH 5.5 (5.0-9.0) Urine Specific [place] 1.013 (1.001-1.035) Urine Protein Negative (Negative) Urine Ketones Negative (Negative) Urine Blood Negative /uL (Negative) Urine Nitrite Negative (Negative) Urine Bilirubin Negative (Negative) Urine Urobilinogen Normal mg/dL (Negative) Urine Leukocyte Esterase Negative /uL (Negative) Urine RBC 1 /hpf (0 - 4) Urine Microscopic WBC < 1 /HPF (0-5) Urine Squamous Epithelial Cells Few /hpf (<5) Urine Bacteria None seen /hpf (None Seen) Urine Mucus Few (None Seen) Urine Glucose Normal mg/dL (Normal) Urine Test Negative (Negative) Troponin I High Sensitivity 6 ng/L (</=34) Test 08/12/24 05:10 08/12/24 05:01 Influenza Type A Antigen Negative (Negative) Influenza Type B Antigen Negative (Negative) SARS-CoV-2 Antigen (Rapid) Negative (NEGATIVE) Lactic Acid Level 1.4 mmol/L (0.4-2.0) B-Type Natriuretic Peptide 16.03 pg/mL (0-100) Other Laboratory Tests 08/16/24 06:14 Brief Hx & Hospital Course: This is a 38 years old female with past medical history of asthma brought into emergency department by EMS because of severe shortness a breath. The patient had a dry cough for three days and then start wheezing. At 1st she thought she had allergy reaction. However today she could not catch her breath especially when she ambulate of doing something. This morning her daughter who had a nightmare and crying so she ran to the daughter room to see what going on. Her shortness for breath getting worse she had tried to use her rescue inhaler without improvement she hyperventilates so she had to call 911. EMS came and she received one breathing treatment in the ambulance and did help a little bit however she still wheezing and requiring nasal cannula oxygen so she was brought to emergency department for asthma exacerbation. Her saturation oxygen in room air is 86-88%. The patient was put on nasal cannula oxygen and was admitted to the hospital. In the hospital she was put on Solu-Medrol and IV antibiotic with Rocephin and Zithromax. The patient also received nebulizer. She continuing to wheeze but slowly getting better. Today her wheezing is improved. Her shortness for breath improved. She did not require oxygen. So she going to be discharged home. Advised her to follow up with primary care physician 1-2 weeks. Follow up with corporate legal secretary as outpatient per schedule. Physical exam: HEENT: Normocephalic atraumatic pupils equal react to light and accommodation. Extraocular muscles intact, conjunctiva pink, oropharynx moist, no thrush, no exudate. Lymphatic: No lymphadenopathy Cardiovascular exam: S1, S2 was heard. No murmurs, rubs, gallops Lung: Clear on auscultation bilaterally, no wheeze, rale, rhonchi. GI: Abdominal soft, nondistended, nontenderness, positive bowel sounds. Extremity: No crepitus, cyanosis, edema. Pedal pulses present bilateral. Full range of motion. Skin: Normal turgor, no rash. Psych: Alert, oriented x3. Neurology: No focal deficits, cranial nerve II to XII grossly intact. This medical document was created using an electronic medical record system with [employer] direct computerized dictation system. Although this document has been carefully reviewed, there may still be some phonetic and typographical errors. These areas are purely typographical due to imperfections of the software programs, and do not reflect any compromise in the patient's medical care. Condition at Discharge: Stable Final Diagnosis/Problems List Acute asthma exacerbation, Hypoxemia, Leukocytosis, Obesity, Discharge Disposition: Home Discharge Statement: "Patient was advised to return to the ER or call 911 if any headaches, dizziness, shortness of breath, chest pain, abdominal pain, bleeding, fevers, or worsening of medical condition. Patient was counseled about treatment plan, medications, possible side effects, patientverbalized understanding. All questions were answered to the best of my ability. This discharge took greater then 30 minutes in planning, reviewing documentation, counseling the patient, and discussing with other team members." ASSESSMENT ASSESSMENT Assessment Date of Service: August 16, 2024 Billing Provider: ABIODUN BAIRES MD Common Visit Codes: [id number]-CRV/OBS DISCH DAY >30min ABIODUN BAIRES MD August 16, 2024 12:50
[2024-08-16] MEDS ORDERED: AZIT-185 PO (13:22)
[2024-08-16] MEDS ORDERED: METH4PAK PO (13:22)
== END 2024-08-16 15:00 | disposition home or self-care (01) | DRG 202 ==
LOC: EDBD 04:35 → ER 04:35 → OVERFLOW 09:56 → CENTRAL 17:45
PROVIDERS: ADMIT Internal Medicine; ATTEND Internal Medicine
DX: J45.901 Unspecified asthma with (acute) exacerbation (principal); J96.00 Acute respiratory failure, unspecified whether with hypoxia or hypercapnia; D72.829 Elevated white blood cell count, unspecified; E66.9 Obesity, unspecified; Z98.891 History of uterine scar from previous surgery; Z79.899 Other long term (current) drug therapy; Z20.822 Contact with and (suspected) exposure to COVID-19; Z68.39 Body mass index [BMI] 39.0-39.9, adult
CPT/HCPCS: 36415; 71045; 80048; 80053; 81001; 81025; 83605; 83880; 84484; 85025; 87426; 87804; 93005; 94640; G0378; J1100; J7060